=== PATIENT | female | born 1965 | race Caucasian/White ===

== ENCOUNTER 2020-03-08 09:31 | Inpatient (IN) | payer OTHER, SELFPAY ==
[~2020-03-08] VITALS: Ht 154.9 cm; Wt 68.0 kg
[2020-03-08 09:36] VITALS: Ht 154.9 cm; Wt 68.0 kg
[2020-03-08 11:39] LABS: CARBON DIOXIDE 26.3 mmol/L (21-32); CHLORIDE SERUM 99 mmol/L (98-107); CREATININE SERUM 0.8 mg/dL (0.6-1.0); GFR1 > 60 mL/min; GLUCOSE SERUM 162 mg/dL (74-106); POTASSIUM SERUM 4.3 mmol/L (3.5-5.1); SODIUM SERUM 135 mmol/L (136-145)
[2020-03-08 11:43] LABS: ALBUMIN 3.6 g/dL (3.4-5.0); ALKALINE PHOSPHATASE 84 U/L (46-116); ALT/SGPT 19 U/L (14-59); AST/SGOT 25 U/L (15-37); BILIRUBIN TOTAL 0.61 mg/dL (0.20-1.00); LACTIC DEHYDROGENASE (LDH) 321 U/L (100-190)
[2020-03-08 11:49] LABS: BASOPHIL % 0.5 % (0.2-1.3); PLATELET COUNT 232 x10^3mcL (179-408); RED CELL DISTRIBUTION WIDTH 12.6 % (12.3-17.7)
[2020-03-08 11:52] LABS: TOTAL PROTEIN, SERUM 8.3 g/dL (6.4-8.2)
[2020-03-09 07:19] LABS: BASOPHIL % 0.5 % (0.2-1.3); PLATELET COUNT 233 x10^3mcL (179-408); RED CELL DISTRIBUTION WIDTH 12.4 % (12.3-17.7)
[2020-03-09 07:34] VITALS: BP 99/56
[2020-03-09 07:49] LABS: ALKALINE PHOSPHATASE 70 U/L (46-116); ALT/SGPT 19 U/L (14-59); AST/SGOT 20 U/L (15-37); BILIRUBIN TOTAL 0.45 mg/dL (0.20-1.00); CALCIUM 9.1 mg/dL (8.5-10.1); CARBON DIOXIDE 24.4 mmol/L (21-32); CHLORIDE SERUM 102 mmol/L (98-107); CHOLESTEROL 155 mg/dL (<200); CHOLESTEROL/HDL RATIO 4.4; CREATININE SERUM 0.8 mg/dL (0.6-1.0); GFR1 > 60 mL/min; GLUCOSE SERUM 202 mg/dL (74-106); HDL CHOLESTEROL 35 mg/dL (40-60); MAGNESIUM 2.3 mg/dL (1.8-2.4); POTASSIUM SERUM 4.1 mmol/L (3.5-5.1); SODIUM SERUM 137 mmol/L (136-145); TOTAL PROTEIN, SERUM 7.5 g/dL (6.4-8.2); TRIGLYCERIDES 76 mg/dL (<150)
[2020-03-09 07:51] LABS: ALBUMIN 3.2 g/dL (3.4-5.0)
[2020-03-09 18:57] VITALS: BP 98/59
[2020-03-10 06:05] VITALS: BP 120/65
[2020-03-10 08:52] VITALS: BP 137/65
[2020-03-10 11:23] VITALS: BP 103/66
[2020-03-10 16:30] VITALS: BP 123/71
[2020-03-10 20:05] LABS: BASOPHIL % 0.9 % (0.2-1.3); PLATELET COUNT 249 x10^3mcL (179-408); RED CELL DISTRIBUTION WIDTH 12.7 % (12.3-17.7)
[2020-03-10 20:22] LABS: ALKALINE PHOSPHATASE 67 U/L (46-116); ALT/SGPT 14 U/L (14-59); AST/SGOT 22 U/L (15-37); BILIRUBIN TOTAL 0.4 mg/dL (0.20-1.00); CALCIUM 8.7 mg/dL (8.5-10.1); CARBON DIOXIDE 26.9 mmol/L (21-32); CHLORIDE SERUM 103 mmol/L (98-107); CREATININE SERUM 0.7 mg/dL (0.6-1.0); GFR1 > 60 mL/min; GLUCOSE SERUM 139 mg/dL (74-106); MAGNESIUM 1.9 mg/dL (1.8-2.4); POTASSIUM SERUM 3.2 mmol/L (3.5-5.1); SODIUM SERUM 139 mmol/L (136-145); TOTAL PROTEIN, SERUM 6.3 g/dL (6.4-8.2)
[2020-03-10 20:33] LABS: ALBUMIN 2.9 g/dL (3.4-5.0)
[2020-03-10 20:34] VITALS: BP 104/63
[2020-03-11 05:17] VITALS: BP 101/62
[2020-03-11 08:17] LABS: ALKALINE PHOSPHATASE 66 U/L (46-116); ALT/SGPT 17 U/L (14-59); AST/SGOT 11 U/L (15-37); BILIRUBIN TOTAL 0.34 mg/dL (0.20-1.00); CALCIUM 8.7 mg/dL (8.5-10.1); CARBON DIOXIDE 25.3 mmol/L (21-32); CHLORIDE SERUM 108 mmol/L (98-107); CREATININE SERUM 0.6 mg/dL (0.6-1.0); GFR1 > 60 mL/min; GLUCOSE SERUM 198 mg/dL (74-106); MAGNESIUM 2.2 mg/dL (1.8-2.4); POTASSIUM SERUM 3.8 mmol/L (3.5-5.1); SODIUM SERUM 142 mmol/L (136-145); TOTAL PROTEIN, SERUM 6.4 g/dL (6.4-8.2)
[2020-03-11 08:56] LABS: ALBUMIN 2.7 g/dL (3.4-5.0)
[2020-03-11 09:16] VITALS: BP 121/63
[2020-03-11 11:13] LABS: BILIRUBIN DIRECT 0.12 mg/dL (0.0-0.2); BILIRUBIN TOTAL 0.3 mg/dL (0.20-1.00); TOTAL PROTEIN, SERUM 6.4 g/dL (6.4-8.2)
[2020-03-11 11:17] LABS: ALBUMIN 2.9 g/dL (3.4-5.0)
[2020-03-11 16:14] LABS: BASOPHIL % 0.4 % (0.2-1.3); PLATELET COUNT 271 x10^3mcL (179-408); RED CELL DISTRIBUTION WIDTH 12.4 % (12.3-17.7)
[2020-03-11 17:15] VITALS: BP 122/69
[2020-03-11 21:07] VITALS: BP 94/42
[2020-03-12 04:46] VITALS: BP 102/48
[2020-03-12 08:36] LABS: BASOPHIL % 0.2 % (0.2-1.3); PLATELET COUNT 274 x10^3mcL (179-408); RED CELL DISTRIBUTION WIDTH 12.4 % (12.3-17.7)
[2020-03-12 08:45] LABS: ALKALINE PHOSPHATASE 59 U/L (46-116); ALT/SGPT 13 U/L (14-59); AST/SGOT 10 U/L (15-37); BILIRUBIN TOTAL 0.28 mg/dL (0.20-1.00); CALCIUM 8.2 mg/dL (8.5-10.1); CARBON DIOXIDE 24.1 mmol/L (21-32); CHLORIDE SERUM 111 mmol/L (98-107); CREATININE SERUM 0.6 mg/dL (0.6-1.0); GFR1 > 60 mL/min; GLUCOSE SERUM 136 mg/dL (74-106); POTASSIUM SERUM 3.4 mmol/L (3.5-5.1); SODIUM SERUM 144 mmol/L (136-145)
[2020-03-12 08:46] LABS: ALBUMIN 2.5 g/dL (3.4-5.0); TOTAL PROTEIN, SERUM 5.7 g/dL (6.4-8.2)
[2020-03-12 09:40] VITALS: BP 98/55
[2020-03-12 11:40] VITALS: BP 105/54
[2020-03-12 17:06] VITALS: BP 121/57
[2020-03-12 20:14] VITALS: BP 113/53
[2020-03-13 05:40] VITALS: BP 109/53
[2020-03-13 08:23] VITALS: BP 112/52
[2020-03-13 11:46] VITALS: BP 108/52
[2020-03-13 12:35] LABS: BASOPHIL % 0.6 % (0.2-1.3); PLATELET COUNT 313 x10^3mcL (179-408); RED CELL DISTRIBUTION WIDTH 12.2 % (12.3-17.7)
[2020-03-13 12:41] LABS: ALKALINE PHOSPHATASE 61 U/L (46-116); ALT/SGPT 19 U/L (14-59); AST/SGOT 24 U/L (15-37); BILIRUBIN TOTAL 0.3 mg/dL (0.20-1.00); CALCIUM 8.6 mg/dL (8.5-10.1); CHLORIDE SERUM 109 mmol/L (98-107); CREATININE SERUM 0.8 mg/dL (0.6-1.0); GFR1 > 60 mL/min; GLUCOSE SERUM 129 mg/dL (74-106); POTASSIUM SERUM 3.3 mmol/L (3.5-5.1); SODIUM SERUM 140 mmol/L (136-145)
[2020-03-13 12:43] LABS: ALBUMIN 2.6 g/dL (3.4-5.0); TOTAL PROTEIN, SERUM 5.6 g/dL (6.4-8.2)
[2020-03-13] MEDS ORDERED: MUCINEX600 MG PO (15:06)
[2020-03-13] MEDS ORDERED: ELIQUIS2.5 MG PO (15:06)
[2020-03-13] MEDS ORDERED: PEPCID AC20 M2 PO (15:07)
[2020-03-13] MEDS ORDERED: DEXAMETHASONE6 MG PO (15:10)
[2020-03-13 15:54] VITALS: BP 133/68
[2020-03-13 20:55] VITALS: BP 112/52
[2020-03-14 05:50] VITALS: BP 106/56
[2020-03-14 08:21] VITALS: BP 112/53
[2020-03-14 11:32] VITALS: BP 104/50
[2020-03-14 16:33] VITALS: BP 123/51
[2020-03-14 20:30] VITALS: BP 108/50
[2020-03-15 05:55] VITALS: BP 116/65
[2020-03-15 09:35] VITALS: BP 128/61
[2020-03-15 13:15] VITALS: BP 116/71
[2020-03-15 17:37] VITALS: BP 125/56
[2020-03-15 21:52] VITALS: BP 115/60
[2020-03-16 06:13] VITALS: BP 123/69
[2020-03-16 08:53] VITALS: BP 127/55
[2020-03-16 12:13] VITALS: BP 91/52
[2020-03-16 17:13] VITALS: BP 131/71
[2020-03-16 20:56] VITALS: BP 134/62
[2020-03-17 06:10] VITALS: BP 119/61
[2020-03-17 08:33] VITALS: BP 130/61
[2020-03-17 12:15] VITALS: BP 115/62
[2020-03-17 16:02] VITALS: BP 110/53
[2020-03-17 17:46] VITALS: BP 110/53
== END 2020-03-17 19:05 | disposition home or self-care (01) | DRG 720 ==
LOC: ED 09:31 → DU 12:38
PROVIDERS: Student in an Organized Health Care Education/Training Program; ADMIT Hospitalist; ATTEND Internal Medicine
PROC: XW033E5 Introduction of Remdesivir Anti-infective into Peripheral Vein, Percutaneous Approach, New Technology Group 5 (ICD-10-PCS; principal; 2020-03-09)
DX: A41.9 Sepsis, unspecified organism (principal); U07.1 COVID-19; J96.01 Acute respiratory failure with hypoxia; Z88.8 Allergy status to other drugs, medicaments and biological substances; E11.9 Type 2 diabetes mellitus without complications; R00.1 Bradycardia, unspecified; J12.82 Pneumonia due to coronavirus disease 2019
CPT/HCPCS: 36600; 82962; 83880; 85378; G0378; J0456; J0696; J1100; J1650; J2270; J7030; J7050; Q9967; U0003

== ENCOUNTER 2020-03-23 17:01 | Emergency (ER) | payer OTHER ==
[~2020-03-23] VITALS: Ht 154.9 cm; Wt 68.9 kg
[~2020-03-23 17:01] MED LIST: DEXAMETHASONE6 MG PO; ELIQUIS2.5 MG PO; MUCINEX600 MG PO; PEPCID AC20 M2 PO
[2020-03-23 17:41] VITALS: Ht 154.9 cm; Wt 68.9 kg
[2020-03-23 21:09] VITALS: BP 119/59
== END 2020-03-23 21:09 | disposition home or self-care (01) ==
LOC: ED 17:01
DX: R07.89 Other chest pain (principal); R06.02 Shortness of breath; I10 Essential (primary) hypertension; E11.9 Type 2 diabetes mellitus without complications; Z20.828 Contact with and (suspected) exposure to other viral communicable diseases; Z88.8 Allergy status to other drugs, medicaments and biological substances
CPT/HCPCS: Q9967

== ENCOUNTER 2020-04-15 10:47 | Emergency (ER) | payer OTHER ==
[~2020-04-15] VITALS: Ht 154.9 cm; Wt 66.2 kg
[2020-04-15 10:48] VITALS: Ht 154.9 cm; Wt 66.2 kg
[2020-04-15 11:54] VITALS: BP 119/65
[2020-04-15 11:59] LABS: PLATELET COUNT 216 x10^3mcL (179-408); RED CELL DISTRIBUTION WIDTH 14.2 % (12.3-17.7)
[2020-04-15 12:02] LABS: CALCIUM 8.7 mg/dL (8.5-10.1); CARBON DIOXIDE 28.7 mmol/L (21-32); CHLORIDE SERUM 109 mmol/L (98-107); CREATININE SERUM 0.6 mg/dL (0.6-1.0); GFR1 > 60 mL/min; GLUCOSE SERUM 160 mg/dL (74-106); POTASSIUM SERUM 3.9 mmol/L (3.5-5.1); SODIUM SERUM 144 mmol/L (136-145)
[2020-04-15 12:06] LABS: ALBUMIN 3.8 g/dL (3.4-5.0); ALKALINE PHOSPHATASE 101 U/L (46-116); ALT/SGPT 30 U/L (14-59); AST/SGOT 26 U/L (15-37); BILIRUBIN TOTAL 0.8 mg/dL (0.20-1.00); TOTAL PROTEIN, SERUM 6.8 g/dL (6.4-8.2)
== END 2020-04-15 16:05 | disposition home or self-care (01) ==
LOC: ED 10:47
PROVIDERS: Emergency Medicine
DX: R07.89 Other chest pain (principal); I10 Essential (primary) hypertension; E11.9 Type 2 diabetes mellitus without complications; Z88.8 Allergy status to other drugs, medicaments and biological substances
CPT/HCPCS: 83880; 85378; J7040; Q9967

== ENCOUNTER 2020-04-19 08:26 | Inpatient (IN) | payer OTHER ==
[~2020-04-19] VITALS: Ht 154.9 cm; Wt 67.7 kg
--- NOTE | 2020-04-19 08:37 | NUR ---
MSE COMPLETED BY DR COLEMAN IN [facility].
[2020-04-19 09:13] LABS: BASOPHIL % 1.3 % (0.2-1.3); PLATELET COUNT 184 x10^3mcL (179-408); RED CELL DISTRIBUTION WIDTH 14.4 % (12.3-17.7)
--- NOTE | 2020-04-19 09:21 | NUR ---
PT ARRIVED FROM HOME C/O SOB WITH MINIMAL EXERTION, CHEST PAIN, SHARP, NON RADIATING 7/10 INTERMITTENT, LEFT EYE FOGGY VISION X2 DAYS, PT DENIES ANY OTHER SYMPTOMS AT THIS TIME. PT LAYING IN BED A&OX4, NO ACUTE DISTRESS NOTED, GOWNED, PLACED ON FULL DIRECTOR RECREATION, SAFETY PRECAUTIONS IN PLACE, CALL LIGHT WITHIN REACH, WILL MONITOR.
[2020-04-19 09:36] LABS: CALCIUM 8.1 mg/dL (8.5-10.1); CHLORIDE SERUM 109 mmol/L (98-107); CREATININE SERUM 0.7 mg/dL (0.6-1.0); GFR1 > 60 mL/min; GLUCOSE SERUM 179 mg/dL (74-106); POTASSIUM SERUM 3.9 mmol/L (3.5-5.1); SODIUM SERUM 143 mmol/L (136-145)
[2020-04-19 09:49] LABS: ALBUMIN 3.4 g/dL (3.4-5.0); ALKALINE PHOSPHATASE 99 U/L (46-116); ALT/SGPT 28 U/L (14-59); AST/SGOT 22 U/L (15-37); BILIRUBIN TOTAL 0.6 mg/dL (0.20-1.00); CHOLESTEROL 167 mg/dL (<200); HDL CHOLESTEROL 60 mg/dL (40-60); LIPASE 159 IU/L (73-393); T4(THYROXINE) 8.7 ug/dL (4.7-13.3)
[2020-04-19 09:52] LABS: TOTAL PROTEIN, SERUM 6.1 g/dL (6.4-8.2)
[2020-04-19 12:54] LABS: UA SPECIFIC GRAVITY >=1.030 (1.005-1.035); microscopic required? YES; urine erythrocyte NEGATIVE (NEGATIVE)
--- NOTE | 2020-04-19 13:05 | NUR ---
PT SITTING UP IN BED, AAOX4, NO ACUTE DISTRESS NOTED, 2/10 CHEST PAIN, PT EATING LUNCH, CALL LIGHT WITHIN REACH.
[2020-04-19 13:06] LABS: AMPHETAMINE QUAL UR NONE DETECTED (See below)
[2020-04-19] MEDS ORDERED: TENORMIN50 MG PO (13:41)
[2020-04-19] MEDS ORDERED: FORTAMET1000 MG PO (13:41)
[2020-04-19] MEDS ORDERED: PRAVASTATIN SOD20 M1 PO (13:43)
--- NOTE | 2020-04-19 15:59 | NUR ---
CONACTED MICROBIOLOGY IN REGARDS TO [facility] TEST RESULTS, RUNNING, WILL BE DONE IN 2 MIN.
--- NOTE | 2020-04-19 16:35 | NUR ---
PT LAYING IN BED, AAOX4, NO ACUTE DISTRESS NOTED, CHEST PAIN 03/22, PT STATES, "I FEEL MUCH BETTER, MY CHEST DOESNT HURT THAT MUCH." WILL CONTINUE TO MONITOR CALL LIGHT WITHIN REACH
--- NOTE | 2020-04-19 16:35 | NUR ---
LAB AT BEDSIDE WITH DRAW
--- NOTE | 2020-04-19 17:20 | NUR ---
SERGIO WOLFF GAVE REPORT TO MIRLANDE WOLFF.
--- NOTE | 2020-04-19 17:20 | NUR ---
RECEIVED REPORT FROM SERGIO NURSE. PT AAOX4, PAIN 03/22. VSS STABLE AT THIS TIME. ON RA. STATED PT WILL BE BROUGHT UP IN 15-20 MINS. WILL ASSESS ONCE PT ARRIVES TO THE FLOOR.
--- NOTE | 2020-04-19 17:30 | NUR ---
RECEIVED PT. PT ARRIVED IN UNIT VIA [facility] ACCOMPANIED BY TRANSPORT AND RN [place]. PT AAOX4, NO ACUTE DISTRESS NOTED. STATES INTERMITTENT ACHING HEADACHE ALL OVER HEAD. STATED "BLURRY" "LIKE WHEN YOU LOOK IN THE [place]IR[place] AND IT'S FOGGY" TO L EYE SINCE MONDAY. IV TO RAC PATENT AND FLUSHING AT THIS TIME. STATES 2/10 CP, NONRADIATING. NITROPASTE ON CHEST, STATES RELIEF. PT PUT ON TELE 10 HR 87. ON RA, LUNGS CTA, STATES INTERMITTENT SOB DURING REST AND WITH EXERTION. NO COUGHING NOTED. NONSMOKER. PULSES PALPABLE, NO EDEMA NOTED AT THIS TIME. STATED EDEMA ON HER L LEG 2 DAYS AGO. STATED LOST WEIGHT 10-12LBS SINCE DX WITH COVID ON 02/2020. BOWEL SOUNDS +, NO N/V/D/ABD DISCOMFORT NOTED. NO DYSURIA NOTED. AMBULATORY WITH GEN WEAKNESS. SKIN INTACT. CALL LIGHT WITHIN REACH. BED IN LOWEST POSITION.
[2020-04-19 18:05] VITALS: BP 153/71
--- NOTE | 2020-04-19 18:48 | NUR ---
PT LAYING IN BED AT THIS TIME. NO ACUTE DISTRESS NOTED. IV TO RAC 20G PATENT AND INTACT. SALINE LOCKED. AAOX4, NO VARELA AT THIS TIME. ON TELE 10 HR 67, CP 2/10 AT THIS TIME, NONRADIATING. ON RA, STATES INTERMITTENT EXERTION AT REST AND WITH EXERTION. SKIN INTACT. WILL ENDORSE CARE TO [place] OPERATOR RN. CALL LIGHT WITHIN REACH. BED IN LOWEST POSITION. ALL NEEDS MET AT THIS TIME.
--- NOTE | 2020-04-19 19:45 | NUR ---
REC'D REPORT FROM OFF GOING NURSE. PT IS AWAKE AND ALERT. PT DENIES ANY CHEST PAINS AT THIS TIME. RESP EVEN AND UNLABORED. WILL CON'T TO MONITOR
[2020-04-19 21:01] VITALS: BP 98/65
--- NOTE | 2020-04-19 21:13 | NUR ---
PUT IN ORDERS FOR MARIELLA MOORE IN THE [facility] SHE OBTAINED FROM ,TO CHECK BLOOD SUGAR,TO START PRAVASTATIN,ATENOLOL AND LOVEONEX.
--- NOTE | 2020-04-20 05:02 | NUR ---
PT HAD AN UNEVENTFUL NIGHT, C/O CHEST ONE TIME DURING THE NIGHT. SLEPT WELL. TROPONIN NEGATIVE. CONSULT IN FOR CARDIOLOGY. WILL CON'T TO MONITOR.
[2020-04-20 05:09] VITALS: Ht 154.9 cm; Wt 67.7 kg
[2020-04-20 05:42] VITALS: BP 136/73
[2020-04-20 06:56] LABS: BASOPHIL % 0.8 % (0.2-1.3); PLATELET COUNT 183 x10^3mcL (179-408)
[2020-04-20 07:19] LABS: CALCIUM 8.8 mg/dL (8.5-10.1); CARBON DIOXIDE 26.4 mmol/L (21-32); CHLORIDE SERUM 109 mmol/L (98-107); CHOLESTEROL 172 mg/dL (<200); CREATININE SERUM 0.6 mg/dL (0.6-1.0); GFR1 > 60 mL/min; GLUCOSE SERUM 155 mg/dL (74-106); HDL CHOLESTEROL 58 mg/dL (40-60); MAGNESIUM 1.7 mg/dL (1.8-2.4); PHOSPHOROUS 3.8 mg/dL (2.5-4.9); POTASSIUM SERUM 3.5 mmol/L (3.5-5.1); SODIUM SERUM 144 mmol/L (136-145); TRIGLYCERIDES 106 mg/dL (<150)
[2020-04-20 07:26] LABS: RED CELL DISTRIBUTION WIDTH 14.6 % (12.3-17.7)
--- NOTE | 2020-04-20 07:30 | NUR ---
PT LAYING IN BED ON RA, NO DISTRESS NOTED. PT STATES HER PAIN IS BETTER THAT SHE HAD JUST GOTTEN A PAIN PILL. PT REQUESTS ANOTHER BLANKET, PT RECEIVED BLANKET. BED IN LOWEST POSITION, WHEELS LOCKED, CALL LIGHT IN REACH. WILL CONTINUE TO MONITOR.
[2020-04-20 08:59] VITALS: BP 120/58
[2020-04-20 12:13] VITALS: BP 117/62
--- NOTE | 2020-04-20 12:48 | NUR ---
PT SITTING UP IN BED, EATING LUNCH. PT COMPLAINS OF CHEST PAIN AND REQUESTS A HYDROCODONE. PT MEDICATED WITH HYDROCODONE. BED IN LOWEST POSITION, WHEELS LOCKED, CALL LIGHT IN REACH.WILL CONTINUE TO MONITOR.
[2020-04-20 16:33] VITALS: BP 116/62
--- NOTE | 2020-04-20 16:51 | NUR ---
SPOKE TO DR BROWN VIA PHONE FOR ORDER CLARIFICATION DC ATENOLOL AND START THE SOTALOL.
--- NOTE | 2020-04-20 18:00 | NUR ---
PT REMAINED FREE FROM INJURY OR COMPLICATIONS THROUGHOUT THIS SHIFT. PT STILL HAS CP WHEN NORCO WEARS OFF. LIQUEFIED PETROLEUM GASFITTER AWARE OF PERSISTANT CP. VSS. BED IN LOWEST POSITION, WHEELS LOCKED, CALL LIGHT IN REACH. WILLCONTINUE TO MONITOR.
[2020-04-20 18:01] VITALS: BP 132/70
--- NOTE | 2020-04-20 19:51 | NUR ---
REC'D PT FROM DAY OFF GOING NURSE. PT LAYING IN BED AWAKE AND LOOKING AT TV. RESP EVEN AND UNLABORED. LUNGS CLEAR ON ROOM AIR. DENIES ANY CHEST PAINS AT THIS TIME. PT HAS AN ORDER FOR DISCHARGE. PAGED DR. NASCIMENTO FOR CLARIFICATION. AWAIT CALL BACK. NAD DISTRESS NOTED.
[2020-04-20 20:20] VITALS: BP 122/65
[2020-04-21 05:25] VITALS: BP 125/55
--- NOTE | 2020-04-21 05:35 | NUR ---
PT SLEPT IN INTERVALS DURING THE NIGHT. C/O CHEST PAINS /10 MEDICATED WITH NORCO 5/325 FOR PAIN. NO FURTHER COMPLAINTS VOICED.
--- NOTE | 2020-04-21 07:35 | NUR ---
RECEIVED PT. IN BED A/A/O X3. NO SOB, NO N/V NOTED. PT. DENIES ANY PAIN AT THIS TIME. IV SITE NOTED TO R AC. PT. IS ON DROPLET ISOLATION (HX. COVID-19 IN FEBRUARY 2020). BED IN LOW POS., CALL LIGHT WITHIN REACH. SIDE RAILS UP X3.
[2020-04-21 09:05] LABS: CALCIUM 8.9 mg/dL (8.5-10.1); CARBON DIOXIDE 26.6 mmol/L (21-32); CHLORIDE SERUM 107 mmol/L (98-107); CREATININE SERUM 0.6 mg/dL (0.6-1.0); GFR1 > 60 mL/min; GLUCOSE SERUM 151 mg/dL (74-106); MAGNESIUM 1.9 mg/dL (1.8-2.4); PHOSPHOROUS 4.3 mg/dL (2.5-4.9); POTASSIUM SERUM 3.6 mmol/L (3.5-5.1); SODIUM SERUM 143 mmol/L (136-145)
[2020-04-21 10:25] VITALS: BP 105/64
[2020-04-21] MEDS ORDERED: BET80 PO (10:47)
[2020-04-21 10:48] LABS: BASOPHIL % 1.4 % (0.2-1.3); PLATELET COUNT 179 x10^3mcL (179-408); RED CELL DISTRIBUTION WIDTH 14.5 % (12.3-17.7)
[2020-04-21 14:57] VITALS: BP 110/70
--- NOTE | 2020-04-21 16:15 | NUR ---
DC HOME INSTRUCTIONS GIVEN TO PATIENT WITH VERBALIZATION OF UNDERSTANDING. IV HEP LOCK TO RIGHT AC REMOVED. TELE MONITOR #10 DC'D AND RETURNED TO TELE MONITOR STATION. ALL QUESTIONS AND CONCERNS ADDRESSED.
--- NOTE | 2020-04-21 16:47 | NUR ---
PATIENT IS BEING DC'D IN STABLE CONDITION AT THIS TIME. PATIENT DECLINED TO BE WHEELED OUT IN . PATIENT AMBULATED WITH RN TO PRIVATE AUTO. ALL BELONGINGS SENT WITH PATIENT UP0N DISCHARGE.
== END 2020-04-21 16:51 | disposition home or self-care (01) | DRG 203 ==
LOC: ED 08:26 → DU 11:48
PROVIDERS: Emergency Medicine; ADMIT Hospitalist; ATTEND Hospitalist
DX: R07.89 Other chest pain (principal); E11.65 Type 2 diabetes mellitus with hyperglycemia; I48.91 Unspecified atrial fibrillation; Z20.822 Contact with and (suspected) exposure to COVID-19; Z88.8 Allergy status to other drugs, medicaments and biological substances; I10 Essential (primary) hypertension; E78.00 Pure hypercholesterolemia, unspecified; I48.0 Paroxysmal atrial fibrillation; Z83.3 Family history of diabetes mellitus; Z82.49 Family history of ischemic heart disease and other diseases of the circulatory system
CPT/HCPCS: 82962; 83880; 85378; G0378; J1650; U0003